=== PATIENT | female | born 1970 | race Hispanic/Latino ===

== ENCOUNTER 2018-01-23 22:42 | Emergency (ER) | payer SELFPAY ==
[~2018-01-23] VITALS: Ht 157.5 cm; Wt 72.6 kg
[2018-01-23] MEDS ORDERED: PANTOPRAZOLE 40 MG 10ML VIAL IV STA (22:59)
[2018-01-23] MEDS ORDERED: ONDANSETRON HCL INJ 2 MG/ML VIAL IV STA (22:59)
[2018-01-23] MEDS ORDERED: MAGNESIUM/ALUMINUM/SIMETHICONE 30 ML UDC PO ONE (23:00)
[2018-01-23] MEDS ORDERED: LIDOCAINE VISC 2% SOLN 15 ML UDC ONE (23:00)
[2018-01-23] MEDS ORDERED: BELLADONNA ALK/PHENOBARBITAL 5 ML UDC PO ONE (23:00)
[2018-01-23] MEDS ORDERED: LIDOCAINE VISC 2% SOLN 15 ML UDC PO ONE (23:00)
[2018-01-23] MEDS ORDERED: PANTOPRAZOLE 40 MG 10ML VIAL ONE (23:01)
[2018-01-23] MEDS ORDERED: BELLADONNA ALK/PHENOBARBITAL 5 ML UDC ONE (23:01)
[2018-01-23] MEDS ORDERED: MAGNESIUM/ALUMINUM/SIMETHICONE 30 ML UDC ONE (23:01)
[2018-01-23 23:25] LABS: BASOPHILS % 0.4 % (0.0-1.0); EOSINOPHILS # (AUTO) 0.2 (0.0-0.4); EOSINOPHILS % 1.5 % (0.0-6.0); HEMATOCRIT 39.1 % (34.2-44.1); HEMOGLOBIN 12.9 g/dL (12.0-16.0); LYMPHOCYTES # (AUTO) 2.8 (1.0-3.2); LYMPHOCYTES % 25.6 % (18.0-39.1); MEAN CORPUSCULAR HEMOGLOBIN 31.1 pg (28-32); MEAN CORPUSCULAR VOLUME 94.2 fL (81-99); MONOCYTES # (AUTO) 0.6 (0.2-0.8); MONOCYTES % 5.5 % (4.4-11.3); NEUTROPHILS # (AUTO) 7.3 (2.1-6.9); NEUTROPHILS % 66.7 % (38.7-80.0); PLATELET COUNT 340 x10e3/uL (140-360); RED BLOOD COUNT 4.15 x10e6/uL (3.6-5.1); RED CELL DISTRIBUTION WIDTH 12.7 % (11.7-14.4)
[2018-01-23 23:30] LABS: BILIRUBIN,URINE NEGATIVE (NEGATIVE); CLARITY,URINE SL CLOUDY (CLEAR); COLOR,URINE YELLOW (YELLOW); EPITHELIAL CELLS,URINE RARE /LPF; KETONES,URINE NEGATIVE (NEGATIVE); LEUKOCYTE ESTERASE ,URINE NEGATIVE (NEGATIVE); NITRITE,URINE NEGATIVE (NEGATIVE); PROTEIN,URINE DIPSTICK NEGATIVE (NEGATIVE); RBC,URINE 0-5 /HPF (0-5); URINE UROBILINOGEN 0.2 mg/dL (0.2 - 1); WBC,URINE (MAN) 0-5 /HPF (0-5)
[2018-01-23 23:31] LABS: AMORPHOUS SEDIMENT,URINE MANY (FEW); MUCUS,URINE FEW (RARE)
[2018-01-23 23:42] LABS: ALANINE AMINOTRANSFERASE 9 IU/L (0-55); ALBUMIN 3.9 g/dL (3.5-5.0); ALBUMIN/GLOBULIN RATIO 1.1 (0.8-2.0); ALKALINE PHOSPHATASE 88 IU/L (40-150); AMYLASE 99 U/L (25-125); ANION GAP 14.8 mmol/L (8-16); BLOOD UREA NITROGEN 15 mg/dL (7-26); BUN/CREATININE RATIO 18 (6-25); CALCIUM 9.4 mg/dL (8.4-10.2); CARBON DIOXIDE 26 mmol/L (22-29); CHLORIDE 100 mmol/L (98-107); CREATININE, SERUM 0.83 mg/dL (0.57-1.11); EST GLOMERULAR FILTRATION RATE > 60 ML/MIN (60-); GLUCOSE 142 mg/dL (74-118); LIPASE 48 U/L (8-78); POTASSIUM 3.8 mmol/L (3.5-5.1); SODIUM 137 mmol/L (136-145)
[2018-01-24 00:08] LABS: CREATINE KINASE 39 IU/L (29-168)
--- NOTE | 2018-01-24 00:22 | Diagnostic Imaging Report ---
CHEST SINGLE (PORTABLE), 01/23/2018 10:59 PM Technique: CHEST SINGLE (PORTABLE) Comparison: None available. Clinical history: ^EPIGASTRIC PAIN RADIATING TO CHEST ^[id number] ^2330 ^Y Findings: Unremarkable portable appearance of the heart, mediastinum, lungs and pleural spaces. Impression: 1. Lines/Tubes: None 2. No acute abnormality. Signed by: Dr Samantha Quezada MD on 01/24/2018 12:18 AM
== END 2018-01-24 00:39 | disposition home or self-care (01) ==
LOC: ER 22:42
DX: R10.13 Epigastric pain (principal); R11.2 Nausea with vomiting, unspecified; K29.00 Acute gastritis without bleeding
CPT/HCPCS: 36415; 71045; 80053; 81001; 82150; 82550; 82553; 83690; 84484; 85025; 93005; 96374; 96376; 99284; J2405